=== PATIENT | female | born 1960 | race Caucasian/White ===

== ENCOUNTER → 2020-11-13 09:03 | Outpatient (BNVA) | payer BC, SELFPAY | PROVIDERS: Family Provider Family Medicine; PCP Nurse Practitioner Family; Visit Provider Internal Medicine | DX: Z12.11 Encounter for screening for malignant neoplasm of colon (principal); Z20.822 Contact with and (suspected) exposure to COVID-19 | CPT/HCPCS: 87635 ==

== ENCOUNTER 2020-11-19 07:43 | Day surgery (SDC) | payer BC, SELFPAY ==
[2020-11-15 13:33] VITALS: BMI 43.5
[2020-11-19 08:13] VITALS: BP 167/93; PULSE 69; RESP 16; TEMP 37.1; O2SAT 95
[2020-11-19] MEDS: sodium chloride 0.9% 1,000 ML 30 ML IV (08:25)
[2020-11-19 08:30] LABS: Glucose Point of Care 124 mg/dL (70-110)
--- NOTE | 2020-11-19 08:33 | ANES.PREANE2 ---
Pre-Anesthetic Assessment Pre-Anesthetic Assessment: Height/Weight: Height 1.68 m Weight 122.47 kg Temp Pulse Resp BP Pulse Ox 98.8 F 69 16 167/93 95 11/19/20 08:13 11/19/20 08:13 11/19/20 08:13 11/19/20 08:13 11/19/20 08:13 Proposed Procedure: Operation Date: 11/19/20 09:00 Proposed Procedures p Colonoscopy 33844 z12.11(Not Applicable) - Stalin Hogan MD Was Beta Therese taken within 24 hours: Yes Was Clonidine taken within 24 hours: N/A Last intake: Intake Last Liquid Date 11/18/20 Last Liquid Time 21:30 Last Solid Date 11/17/20 Last Solid Time 12:00 Social: Social History: No alcohol and No tobacco Exam: Pre-Anes Outpt Exam: alert, oriented x 3, clear to auscultation bilaterally and regular rate & rhythm Airway: Submandibular: WNL Cervical ROM: WNL MP: 2 Dentition: Full CV/HEM: CV/HEM: HTN Metabolic: Metabolic: DM, Hyperlipidemia and Morbid obesity Anesthetic Plan: ASA status: 3 Anesthesia: MAC Risk of > 500 ml blood loss (7ml/kg in children): No Meds/Allergies Current Medications: Current Medications Generic Name Dose Route Start Last Admin Trade Name Freq PRN Reason Stop Dose Admin Sodium Chloride 1,000 mls @ 30 ml s/hr 11/19/20 08:00 11/19/20 08:25 Sodium Chloride 0.9% IV 11/20/20 07:59 30 mls/hr .Q24H GODFREY Administration Data Anesthesia Other Labs: Laboratory Results - last 48 hr 11/19/20 08:23 POC Glucose 124 H Cardiac Studies: No Data to Display
--- NOTE | 2020-11-19 09:08 | W.PM.OPSFHP ---
Same Day Surgery H&P Indication for Procedure/HPI DATE OF PROCEDURE: November 19, 2020 CHIEF COMPLAINT/INDICATIONFOR SURGICAL PROCEDURE: screening PREOP DIAGNOSIS: screening PLANNED PROCEDRUE: Operation Date: 11/19/20 09:00 Proposed Procedures p Colonoscopy 94844 z12.11(Not Applicable) - Stalin Hogan MD Medications/Allergies* Home Medications Medication Instructions Recorded Confirmed Type diclofenac sodium 75 mg PO BID 11/15/20 11/19/20 History furosemide 40 mg PO DAILY 11/15/20 11/19/20 History hydrochlorothiazide 12.5 mg PO DAILY 11/15/20 11/19/20 History losartan 50 mg PO DAILY 11/15/20 11/19/20 History metformin 500 mg PO BID 11/15/20 11/19/20 History metoprolol tartrate 50 mg PO BID 11/15/20 11/19/20 History pravastatin 20 mg PO DAILY 11/15/20 11/19/20 History Allergies/Adverse Reactions Allergy/AdvReac Type Severity Reaction Status Date / Time Sulfa (Sulfonamide Allergy ALGY-Rash Verified 11/19/20 08:11 Antibiotics) Current Medications: Generic Name Dose Route Start Last Admin Trade Name Freq PRN Reason Stop Dose Admin Sodium Chloride 1,000 mls @ 30 mls/hr 11/19/20 08:00 11/19/20 08:25 Sodium Chloride 0.9% IV 11/20/20 07:59 30 mls/hr .Q24H GODFREY Administration Pertinent Exam Findings alert, oriented x 3, clear to auscultation bilaterally, regular rate & rhythm, operative site marked and procedure specific exam findings Recommendations Surgery/Procedure today Coding Level of Care Code Acute Perfume Compounder for Shweta Canchola
[2020-11-19 09:44] VITALS: BP 186/88; PULSE 77; RESP 18; TEMP 36.2; O2SAT 93
[2020-11-19 09:53] VITALS: BP 176/76; PULSE 69; RESP 18; O2SAT 95
--- NOTE | 2020-11-19 10:46 | ANE.PACU2 ---
Inpatient post-anesthesia follow up: Airway intact: Yes Vital signs: Temperature 97.2 F Pulse Rate 69 Respiratory Rate 18 Blood Pressure 176/76 Pulse Oximetry 95 Oxygen Delivery Me thod Room Air Oxygen Flow Rate Fraction of Inspir ed Oxygen Hydration adequate: Yes Nausea and vomiting: No Mental status: Baseline
== END 2020-11-19 10:15 | disposition home or self-care (01) ==
PROVIDERS: Family Provider Family Medicine; PCP Nurse Practitioner Family; Visit Provider Internal Medicine
PROC: 0DJD8ZZ Inspection of Lower Intestinal Tract, Via Natural or Artificial Opening Endoscopic (ICD-10-PCS; CPT 45378; principal; 2020-11-19 09:00)
DX: Z12.11 Encounter for screening for malignant neoplasm of colon (principal); K57.30 Diverticulosis of large intestine without perforation or abscess without bleeding; I10 Essential (primary) hypertension; E11.9 Type 2 diabetes mellitus without complications; E78.5 Hyperlipidemia, unspecified; E66.01 Morbid (severe) obesity due to excess calories; Z68.41 Body mass index [BMI] 40.0-44.9, adult
CPT/HCPCS: 36416; 45378; 82962; 96360; J2704; J7030